=== PATIENT | female | born 1990 | race Caucasian/White ===

== ENCOUNTER → 2022-02-03 | Outpatient (CLI) | payer OTHER ==
[~2022-02-03] MED LIST: ECOT81TA5 PO; FOLI1TAB11 PO; IRON65TA2 PO; PRENTAB9 PO
== END ==
LOC: M WHC 07:44
PROVIDERS: ATTEND Obstetrics & Gynecology
DX: Z36.4 Encounter for antenatal screening for fetal growth retardation (principal); Z3A.33 33 weeks gestation of pregnancy

== ENCOUNTER 2022-02-16 09:31 | Inpatient (IN) | payer OTHER ==
[~2022-02-16] VITALS: Ht 170.2 cm; Wt 72.0 kg
[2022-02-16] MEDS ORDERED: ECOT81TA5 PO (10:01)
[2022-02-16] MEDS ORDERED: IRON65TA2 PO (10:01)
[2022-02-16] MEDS ORDERED: PRENTAB9 PO (10:01)
[2022-02-16] MEDS ORDERED: FOLI1TAB11 PO (10:01)
[2022-02-16 10:18] VITALS: BP 114/72
[2022-02-16] MEDS ORDERED: HOME MED LIST COMPLETE! XX SCH (10:25)
[2022-02-16] MEDS ORDERED: OXYTOCIN DRIP 30 UNITS in IV 1 EA IV PRN ×10 (11:30→11:40)
[2022-02-16] MEDS ORDERED: METHYLERGONOVINE MALEATE 0.2 MG/ML VIAL (J2210) IM PRN ×2 (11:30→11:40)
[2022-02-16] MEDS ORDERED: ceFAZolin SOD 2 GM in IV 1 EA IV ONE (11:40)
[2022-02-16] MEDS ORDERED: AZITHROMYCIN INJ 500 MG, VIAL MATE ADAPTER 1 EACH in NS 250 ML IV ONE (11:40)
[2022-02-16] MEDS ORDERED: BICITRA 30ML SOLN UDC PO ONE (11:40)
[2022-02-16] MEDS ORDERED: BUPIVACAINE HCL 0.25% 10ML VIAL SC ONE (11:40)
[2022-02-16] MEDS ORDERED: OXYTOCIN INJ 10UNITS/ML 1ML VIAL IM PRN (11:40)
[2022-02-16] MEDS ORDERED: ACETAMINOPHEN 650MG SUPP PR ONE (11:40)
[2022-02-16] MEDS ORDERED: TRANEXAMIC ACID INJection 1,000 MG in NS 100 ML IV PRN (11:40)
[2022-02-16 12:24] LABS: HEMATOCRIT 34.4 % (36.0-47.0); HEMOGLOBIN 10.7 g/dl (12.0-15.5); MEAN CORPUSCULAR HGB CONC 31.1 g/dl (32.0-36.5); MEAN CORPUSCULAR VOLUME 83.5 fl (80.0-96.0); PLATELET COUNT, AUTOMATED 148 10^3/uL (150-450); RED BLOOD COUNT 4.12 10^6/uL (4.00-5.40); WHITE BLOOD COUNT 9.1 10^3/uL (4.0-10.0)
[2022-02-16] MEDS ORDERED: MORPHINE PRES-FREE INJ 10 MG/10 ML VIAL As Ordered ONE (12:28)
[2022-02-16] MEDS ORDERED: OXYTOCIN 30 UNITS IN 0.9% NaCl 500ML IV BAG (J2590) As Ordered ONE (14:09)
[2022-02-16 14:11] LABS: CORD GAS ABE A -2.8; CORD GAS HCO3 A 25.2 MEQ/L; CORD GAS O2 SAT A 22.1 %; CORD GAS PCO2 A 55.7 mmHg; CORD GAS PH A 7.274 UNITS; CORD GAS PO2 A 12.9 mmHg; CORD GAS SBC A 20.1 MEQ/L; CORD GAS TCO2 A 26.9 MEQ/L
[2022-02-16 14:13] LABS: CORD GAS ABE A -3.4; CORD GAS O2 SAT A 25.8 %; CORD GAS PCO2 A 40.9 mmHg; CORD GAS PH A 7.348 UNITS; CORD GAS PO2 A 12.9 mmHg; CORD GAS TCO2 A 23.2 MEQ/L
[2022-02-16] MEDS ORDERED: KETOROLAC 60MG 2ML VIAL As Ordered ONE (14:14)
[2022-02-16 14:15] LABS: CORD GAS ABE V -3.1; CORD GAS HCO3 V 21.2 MEQ/L; CORD GAS O2 SAT V 75.3 %; CORD GAS PCO2 V 35.6 mmHg; CORD GAS PH V 7.392 UNITS; CORD GAS PO2 V 28.3 mmHg; CORD GAS SBC V 21.4 MEQ/L; CORD GAS TCO2 V 22.3 MEQ/L
[2022-02-16 14:18] LABS: CORD GAS ABE V -2.7; CORD GAS HCO3 V 21.5 MEQ/L; CORD GAS O2 SAT V 61.2 %; CORD GAS PH V 7.393 UNITS; CORD GAS PO2 V 23.3 mmHg; CORD GAS SBC V 21.2 MEQ/L; CORD GAS TCO2 V 22.6 MEQ/L
[2022-02-16] MEDS ORDERED: NALOXONE INJ 0.4MG/1ML VIAL IV PRN ×2 (14:20)
[2022-02-16] MEDS ORDERED: oxyCODONE 5MG TAB PO PRN ×2 (14:20→15:00)
[2022-02-16] MEDS ORDERED: ONDANSETRON 4MG 2ML VIAL IV PRN ×2 (14:20→15:00)
[2022-02-16] MEDS ORDERED: fentaNYL 100 MCG/2 ML INJECTION IV PRN (14:20)
[2022-02-16] MEDS ORDERED: METOCLOPRAMIDE INJ 10MG/2ML VIAL IV PRN (14:20)
[2022-02-16] MEDS ORDERED: diphenhydrAMINE 50MG/ML VIAL IV PRN (14:20)
[2022-02-16] MEDS ORDERED: **NOTE PATIENT COMMENT** MISC XX SCH (14:20)
[2022-02-16] MEDS ORDERED: SIMETHICONE 80MG CHEW TAB PO PRN (15:00)
[2022-02-16] MEDS ORDERED: MORPHINE 2 MG/ML 1ML VIAL IV PRN (15:00)
[2022-02-16] MEDS ORDERED: METHYLERGONOVINE MALEATE 0.2 MG TAB PO PRN (15:00)
[2022-02-16] MEDS ORDERED: RHOGAM 300 MCG (1500 IU) INJ (J2790) IM SCH (15:00)
[2022-02-16] MEDS: LR 1,000 ML IV SCH (15:15)
[2022-02-16 16:30] VITALS: BP 131/66
[2022-02-16 17:00] VITALS: BP 132/74
[2022-02-16 18:10] VITALS: BP 129/60
[2022-02-16 18:53] VITALS: BP 131/69
[2022-02-16] MEDS: KETOROLAC 30 MG/ML 1ML VIAL IV SCH (20:08)
[2022-02-16] MEDS: DOCUSATE SODIUM 100MG CAPSULE PO SCH (20:09)
[2022-02-16] MEDS: ENOXAPARIN 40MG/0.4ML SYRINGE (J1650 PER 10MG) SC SCH (20:09)
[2022-02-16] MEDS: SLF 3 ML SYR IV SCH (23:00)
[2022-02-17] VITALS (9 sets, daily range): BP systolic 117–130; BP diastolic 67–81
[2022-02-17] MEDS: SLF 3 ML SYR IV SCH ×2 (01:25→07:00)
[2022-02-17] MEDS: KETOROLAC 30 MG/ML 1ML VIAL IV SCH ×2 (01:26→07:24)
[2022-02-17 05:59] LABS: MEAN CORPUSCULAR HEMOGLOBIN 26.4 pg (27.0-33.0); MEAN CORPUSCULAR HGB CONC 30.7 g/dl (32.0-36.5); MEAN CORPUSCULAR VOLUME 86.1 fl (80.0-96.0); PLATELET COUNT, AUTOMATED 101 10^3/uL (150-450); RED BLOOD COUNT 2.31 10^6/uL (4.00-5.40); WHITE BLOOD COUNT 7.3 10^3/uL (4.0-10.0)
[2022-02-17 06:05] LABS: HEMATOCRIT 19.9 % (36.0-47.0); HEMOGLOBIN 6.1 g/dl (12.0-15.5)
[2022-02-17] MEDS: LR 1,000 ML IV SCH ×2 (07:00→07:01)
[2022-02-17] MEDS: FERROUS SULFATE 325MG TAB PO SCH (08:50)
[2022-02-17] MEDS: DOCUSATE SODIUM 100MG CAPSULE PO SCH ×2 (08:50→20:56)
[2022-02-17] MEDS: PRENATAL VITAMINS CHEWABLE TABLET PO SCH (08:50)
[2022-02-17] MEDS: oxyCODONE 5MG TAB PO PRN ×2 (10:54→17:06)
[2022-02-17] MEDS: ACETAMINOPHEN TAB 650MG DOSE (2X325MG) PO PRN ×2 (15:21→20:57)
[2022-02-17 19:04] LABS: HEMATOCRIT 25.8 % (36.0-47.0); MEAN CORPUSCULAR HEMOGLOBIN 26.9 pg (27.0-33.0); MEAN CORPUSCULAR HGB CONC 31.4 g/dl (32.0-36.5); MEAN CORPUSCULAR VOLUME 85.7 fl (80.0-96.0); PLATELET COUNT, AUTOMATED 131 10^3/uL (150-450); RED BLOOD COUNT 3.01 10^6/uL (4.00-5.40); WHITE BLOOD COUNT 11.2 10^3/uL (4.0-10.0)
[2022-02-17 19:08] LABS: HEMOGLOBIN 8.1 g/dl (12.0-15.5)
[2022-02-17] MEDS: IBUPROFEN 600MG TAB PO PRN (20:57)
[2022-02-17] MEDS: ENOXAPARIN 40MG/0.4ML SYRINGE (J1650 PER 10MG) SC SCH (20:57)
[2022-02-18 02:09] VITALS: BP 115/64
[2022-02-18] MEDS: IBUPROFEN 600MG TAB PO PRN ×4 (04:34→23:34)
[2022-02-18] MEDS: oxyCODONE 5MG TAB PO PRN ×4 (04:35→23:34)
[2022-02-18 06:00] VITALS: BP 112/64
[2022-02-18] MEDS: PRENATAL VITAMINS CHEWABLE TABLET PO SCH (08:46)
[2022-02-18] MEDS: DOCUSATE SODIUM 100MG CAPSULE PO SCH ×2 (08:46→21:37)
[2022-02-18] MEDS: FERROUS SULFATE 325MG TAB PO SCH (08:46)
[2022-02-18] MEDS ORDERED: MEASLES,MUMPS,RUBELLA VACCINE INJ (MMR-II) (90707) SC.IMMUN ONE (09:00)
[2022-02-18 10:30] VITALS: BP 122/73
[2022-02-18] MEDS ORDERED: ACET1TAB55 PO (13:15)
[2022-02-18] MEDS ORDERED: IBUP-1022 PO (13:15)
[2022-02-18] MEDS ORDERED: OXYC-517 PO (13:15)
[2022-02-18 14:00] VITALS: BP 122/66
[2022-02-18 18:00] VITALS: BP 103/70
[2022-02-18] MEDS: ENOXAPARIN 40MG/0.4ML SYRINGE (J1650 PER 10MG) SC SCH (21:39)
[2022-02-19 06:00] VITALS: BP 114/70
[2022-02-19 06:59] LABS: HEMATOCRIT 24.7 % (36.0-47.0); HEMOGLOBIN 7.6 g/dl (12.0-15.5); MEAN CORPUSCULAR HGB CONC 30.8 g/dl (32.0-36.5); MEAN CORPUSCULAR VOLUME 87.6 fl (80.0-96.0); PLATELET COUNT, AUTOMATED 133 10^3/uL (150-450); RED BLOOD COUNT 2.82 10^6/uL (4.00-5.40); WHITE BLOOD COUNT 8.6 10^3/uL (4.0-10.0)
[2022-02-19 08:00] VITALS: BP 114/70
[2022-02-19] MEDS: DOCUSATE SODIUM 100MG CAPSULE PO SCH (08:12)
[2022-02-19] MEDS: IBUPROFEN 600MG TAB PO PRN (08:12)
[2022-02-19] MEDS: PRENATAL VITAMINS CHEWABLE TABLET PO SCH (08:13)
[2022-02-19] MEDS: oxyCODONE 5MG TAB PO PRN (08:13)
[2022-02-19] MEDS: FERROUS SULFATE 325MG TAB PO SCH (08:13)
[2022-02-19] MEDS: ACETAMINOPHEN TAB 650MG DOSE (2X325MG) PO PRN (09:49)
== END 2022-02-19 10:30 | disposition home or self-care (01) | DRG 772 ==
LOC: M LDO 09:31 → M LDI 11:28 → M OBS 16:13
PROVIDERS: ADMIT Obstetrics & Gynecology; ATTEND Obstetrics & Gynecology
PROC: 10D00Z1 Extraction of Products of Conception, Low, Open Approach (ICD-10-PCS; principal; 2022-02-16 12:30)
PROC: 30233N1 Transfusion of Nonautologous Red Blood Cells into Peripheral Vein, Percutaneous Approach (ICD-10-PCS; 2022-02-17)
DX: O42.013 Preterm premature rupture of membranes, onset of labor within 24 hours of rupture, third trimester (principal); D62 Acute posthemorrhagic anemia; O30.043 Twin pregnancy, dichorionic/diamniotic, third trimester; Z3A.35 35 weeks gestation of pregnancy; O36.5931 Maternal care for other known or suspected poor fetal growth, third trimester, fetus 1; O32.1XX1 Maternal care for breech presentation, fetus 1; O32.2XX2 Maternal care for transverse and oblique lie, fetus 2; Z37.2 Twins, both liveborn; O99.02 Anemia complicating childbirth